=== PATIENT | male | born 1995 | race Caucasian/White ===

== ENCOUNTER 2018-09-05 15:29 | Observation (INO) | payer OTHER ==
[2018-09-05] VITALS (11 sets, daily range): BP systolic 126–146; BP diastolic 58–77; PULSE 70–96; RESP 12–23; Ht 188 cm; Wt 101.4 kg
[~2018-09-05] VITALS: Ht 188 cm; Wt 101.4 kg
[2018-09-05] MEDS ORDERED: ROPIVACAINE 0.5 % 30 ML VIAL ONE ×2 (17:02→17:15)
[2018-09-05] MEDS ORDERED: POLYMYXIN/BACITRACIN 1L IRRIG ONE (17:03)
[2018-09-05] MEDS ORDERED: POVIDONE IODINE 10% 28.4 GM OINT ONE (17:03)
[2018-09-05] MEDS ORDERED: MIDAZOLAM 1 MG/ML 2 ML INJ ONE (17:17)
--- NOTE | 2018-09-05 17:23 | PREAC ---
Date/Time of Note Date/Time of Note DATE: 09/05/18 TIME: 17:21 Anesthesia Eval and Record Evaluation Time Pre-Procedure Interview DATE: 09/05/18 TIME: 17:21 Age 23 Sex male NPO: 8 hrs Preoperative diagnosis right ankle fracture Planned procedure orif right ankle fracture, ankle arthroscopy, micro fracture and drilling talus, possible deltoid repair Past Medical History Past Medical History: None Surgery & Anesthesia Issues No known issue Meds Anticoagulation: No Beta Dara within 24 hr: No Reason Beta Dara not given: Pt. not on B-Dara Meds reviewed: Yes Allergies Coded Allergies: No Known Allergy (Unverified , 09/05/18) Allergies Reviewed: Yes Labs/Studies Labs Reviewed: Reviewed by anesthesiologist test: N/A Pre-procedure Exam Last vitals Vital Signs Date Temp Pulse Resp B/P (MAP) Pulse Ox O2 O2 Flow FiO2 Time Delivery Rate 09/05/18 98.9 90 16 126/75 97 Room Air 15:57 (92) Airway: Adequate mouth opening, Adequate thyromental dist Mallampati: Mallampati II Teeth: Normal Lung: Normal Heart: Normal ASA Physical Status ASA physical status: 1 Emergency: None Planned Anesthetic General/MAC: ETT Nerve block: Sciatic (right) Planned Pain Management Single shot nerve block, Parenteral pain med Pre-operative Attestations Prior to commencing anesthesia and surgery, the patient was re-evaluated, there was verification of: *The patient's identity *The results of appropriate recent lab work and preoperative vital signs *The above evaluation not changing prior to induction *Anesthetic plan, risk benefits, alternative and complications discussed with patient/family; questions answered; patient/family understands, accepts and wishes to proceed. ROE HERNANDEZ Sep 05, 2018 17:23
[2018-09-05] MEDS ORDERED: PROPOFOL 20 ML ONE (17:41)
[2018-09-05] MEDS ORDERED: DEXAMETHASONE 4 MG/ML 5 ML INJ ONE (18:37)
[2018-09-05] MEDS ORDERED: ONDANSETRON 4 MG INJ ONE (18:38)
[2018-09-05] MEDS ORDERED: FENTAnyl 50 MCG/ML VIAL ONE (20:43)
[2018-09-05] MEDS ORDERED: LABETALOL HCL 20MG INJ ONE (21:02)
[2018-09-05] MEDS ORDERED: CEFAZOLIN 1 GM INJ ONE (21:59)
[2018-09-05] MEDS ORDERED: GLYCOPYRROLATE 0.4 MG INJ ONE (21:59)
[2018-09-05] MEDS ORDERED: NEOSTIGMINE 3 MG/3 ML SYRINGE ONE (21:59)
[2018-09-05] MEDS ORDERED: KETOROLAC 30 MG INJ ONE (22:12)
--- NOTE | 2018-09-05 22:35 | PAC ---
Date/Time of Note Date/Time of Note DATE: 09/05/18 TIME: 22:35 Post-Anesthesia Notes Post-Anesthesia Note Last documented vital signs Vital Signs Date Temp Pulse Resp B/P (MAP) Pulse Ox O2 O2 Flow FiO2 Time Delivery Rate 09/05/18 98.9 90 16 126/75 97 Room Air 22:34 (92) Activity: WNL Respiratory function: WNL Cardiovascular function: WNL Mental status: Baseline Pain reasonably controlled: Yes Hydration appropriate: Yes Nausea/Vomiting absent: Yes ROE HERNANDEZ Sep 05, 2018 22:35
--- NOTE | 2018-09-05 22:35 | OPPN ---
Date/Time of Note Date/Time of Note DATE: 09/05/18 TIME: 22:32 Operative Report Preoperative Diagnosis Right bimalleolar ankle fracture and syndesmotic injury. Loose bodies left ankle. Postoperative Diagnosis same Operation/Procedure Performed 1. Right ankle arthroscopy with extensive debridement and removal of loose bodies 2. Open reduction internal fixation right bimalleolar ankle fracture 3. Open reduction internal fixation right ankle syndesmosis Surgeon see signature line carpenter assistant MD Juan Fisher MD Anesthesia: general Estimated blood loss: minimal Transfusion Required none Specimen none Grafts/Implants none Complications none JESUS OWUSU MD Sep 05, 2018 22:35
[2018-09-05] MEDS ORDERED: HYDROmorphONE 0.2 MG/ML PCA ONE (22:51)
[2018-09-05] MEDS ORDERED: ONDANSETRON 4 MG INJ IV PRN ×2 (23:00)
[2018-09-05] MEDS ORDERED: HYDROmorphONE 0.2 MG/ML PCA IV SCH (23:00)
[2018-09-05] MEDS ORDERED: EPHEDrine SULFATE 50 MG/5 ML SYG IV PRN (23:00)
[2018-09-05] MEDS ORDERED: DIPHENHYDRAMINE 25 MG CAP PO PRN (23:00)
[2018-09-05] MEDS ORDERED: morphine 10 MG INJ IV PRN (23:00)
[2018-09-05] MEDS ORDERED: KETOROLAC 30 MG INJ IV PRN (23:00)
[2018-09-05] MEDS ORDERED: LABETALOL HCL 20MG INJ IV PRN (23:00)
[2018-09-05] MEDS ORDERED: HYDROmorphONE 1 MG/5 ML IV SYRINGE IV PRN ×3 (23:00)
[2018-09-05] MEDS ORDERED: MEPERIDINE 25 MG INJ IV PRN (23:00)
[2018-09-05] MEDS ORDERED: DIPHENHYDRAMINE 50 MG INJ IV PRN (23:00)
[2018-09-05] MEDS ORDERED: CEFAZOLIN 1 GM/50 ML (PMX) 50 ML IVPB SCH (23:00)
[2018-09-05] MEDS ORDERED: METOCLOPRAMIDE 10 MG INJ IV PRN (23:00)
[2018-09-05] MEDS ORDERED: hydrALAzine 20 MG INJ IV PRN (23:00)
[2018-09-05] MEDS ORDERED: FENTAnyl 50 MCG/ML VIAL IV PRN ×3 (23:00)
[2018-09-05] MEDS ORDERED: ALBUTEROL 0.083% (NEB) 2.5 MG/3 ML AMP HHN PRN (23:00)
[2018-09-05] MEDS ORDERED: MIDAZOLAM 1 MG/ML 2 ML INJ IV PRN (23:00)
[2018-09-05] MEDS ORDERED: OXYCODONE/ACETAMINOPHEN (5/325) TAB PO PRN ×3 (23:00)
[2018-09-05] MEDS ORDERED: BISACODYL 10 MG SUPP PR PRN (23:00)
[2018-09-05] MEDS: SOD CHLORIDE 0.9% 1,000 ML IV SCH (23:56)
[2018-09-06 00:45] VITALS: BP 132/67; PULSE 95
--- NOTE | 2018-09-06 02:45 | OPR ---
DATE OF OPERATION: 09/05/2018 PREOPERATIVE DIAGNOSES: 1. Comminuted undisplaced bimalleolar fracture of the right ankle with a fracture of the posterior m alleolus and a comminuted fracture of the fibula and tear of the deltoid ligament. 2. Osteochondral fracture, posterolateral talus. 3. Fibrosis, scarring, and adhesions. POSTOPERATIVE DIAGNOSES: 1. Comminuted undisplaced bimalleolar fracture of the right ankle with a fracture of the posterior m alleolus and a comminuted fracture of the fibula and tear of the deltoid ligament. 2. Osteochondral fracture, posterolateral talus. 3. Fibrosis, scarring, and adhesions. OPERATIONS: 1. Arthroscopy, right ankle, with soft tissue distraction. 2. Extensive debridement of the ankle. 3. Removal of osteochondral loose bodies greater than 1 cm. 4. Open reduction internal fixation bimalleolar ankle fracture with a 10-hole one-third tubular plat e. 5. Reduction and stabilization of the syndesmosis with two 4.5 mm AO cannulated screws. 6. Use of fluoroscopy to verify the alignment of the fracture and position of the screws, K-wires, s yndesmosis screws, and plate. 7. Short-leg cast. 8. Stress x-rays under anesthesia of the ankle. Extremely complex difficult procedure because the fracture was 3 weeks old. It was quite scarred in. It was difficult to mobilize the fracture fragments, and there was a significant amount of comminut ion. In addition, the patient had a high BMI which made it more difficult as well. Because of this, an additional 60 minutes of time was spent doing the surgery (22). SURGEON: Jesus Crum MD AGRICULTURAL ENGINEER: Juan Crum MD SECOND PC INSTALLATION ENGINEER David Pryor MD ANESTHESIA: General with popliteal block. TOURNIQUET TIME: 120 minutes. DESCRIPTION OF PROCEDURE: The patient taken to the operating room and placed in supine position. Sa tisfactory popliteal block was given. Satisfactory general anesthesia was administered. The right t high was secured in the thigh subramanian. Arms were carefully padded. The right leg was prepped and jazmyn ped in the usual manner. Soft tissue distraction was applied to the ankle. Standard anteromedial, a nterolateral, and posterolateral portals were established using extreme caution avoiding neurovascula r structures. During the procedure, we also used a nonsterile thigh support under the drapes. There was extensive amount of hematoma and scarring throughout the ankle because the ankle fracture was 3 weeks old. Once inflow was established, I used the shaver from all 3 portals to remove all the hemat kelvin, scarring and fibrosis. There was an osteochondral fracture of the posterolateral talar dome wit h a loose fragment, which was removed greater than 1 cm. Several other osteochondral fracture fragme nts were seen posteriorly from the posterior malleolar fracture which were removed, each greater than 1 cm. The posterior malleolar fracture was debrided and left in place. The medial gutter was debri ded. There was a partial tear of the deltoid ligament, partial tears of the anterior talofibular lig ament, and complete tear of the syndesmosis as best we could tell. Syndesmosis was debrided. The la teral gutter and medial gutter were debrided. Soft tissue peeled off the distal tibia. All free bon e off the distal tibia was removed. Minimal chondromalacia was noted elsewhere in the tibia and the talus. Posterior ligaments had tears were debrided. After complete debridement, the ankle was then reprepped and redraped. All new gowns and gloves and instruments were used. The fluoroscope was bro ught in. We marked where the fracture site was and longitudinal incision was made above and below th e fracture at the tip of the fibula, carried up proximally to appropriate length. Dissection was car ried down to subcutaneous tissue. Extreme caution was made to avoid injuring neurovascular structure s. Periosteum was elevated off the fracture fragments. We left the butterfly fragment intact and in place, so we could reattach it later. Multiple comminuted fracture fragments were removed. The fra cture was exposed with sharp dissection and electrosurgery. Entire fracture was then irrigated and a ll the hematoma was removed. Curettes were used to remove all of the fracture debris and hematoma un til we can understand the fracture more clearly. Because of the fracture was 3 weeks old, mobilizati on was difficult of the fracture and freeing up the fracture and reducing was very difficult. We red uced the first dorsal distal piece to the remaining fibula with the clamps. Two 3.5 interfragmentary screws were used to hold it in place. We then reduced the second dorsal portion of the fracture to the posterior portion and secured with 1 interfragmentary screw. The butterfly triangular fragment w as then reduced, held temporarily with a K-wire. A 10-hole one-third tubular plate was then bent at the tip and aligned, so it fit perfectly along the fracture. By doing this, we were able to buttress and reduce anatomically the large butterfly fragment. Two cancellous screws were inserted distally. Three bicortical screws were inserted proximally with a total of 6 screws in the plate and 3 interf ragmentary screws. Under fluoroscopy, we did stress x-rays of the ankle. The syndesmosis was unstab le and the medial clear space went from 2 mm to 6 mm. We felt syndesmosis screws were indicated. Th e ankle was dorsiflexed. A small nabil was made in the medial malleolus. The large reduction clamp w as placed in the plate and on the medial malleolus, the mortise was reduced and the syndesmosis was r educed anatomically. Two 4.0 guide pins were inserted from the AO cannulated screw set. The lengths were measured. The holes were drilled for cortices, and two 4.5 cannulated screws were inserted for cortices. Excellent fixation was obtained. Also, these screws helped up to reduce the fibular obli que fracture anatomically further. When we were done with the syndesmosis, stress x-rays were done a nd the syndesmosis was quite stable. Medial clear space was 2 mm. Final fluoroscopic views in all 3 planes, AP, lateral, and mortise, show anatomic reduction with excellent placement of the screws and plate. The wounds irrigated again with antibiotic solution. The fascia was closed over the plate a nd the screws with a running 0 PDS. Tourniquet was released, bleeders were coagulated, wounds irriga woody with antibiotic solution, and bleeding was obtained. The subcutaneous tissue was closed with 2-0 and 3-0 undyed Vicryl, and the skin was closed with 3-0 and 4-0 black nylon. Portals were closed wi th 3-0 black nylon. A saphenous nerve block done with 0.5% ropivacaine. Compression dressing was ap plied as well as a short-leg cast in neutral position. Interprocedure sponge and needle count was co rrect. The patient tolerated procedure well and the cast was split in the operating room. PC INSTALLATION ENGINEER ORTHOPEDIC SURGEON: During the procedure, an pediatric medical assistant orthopedic surgeon was used at my [facility]. The pediatric medical assistant helped with manipulating the ankle, reducing the fracture and while I held the fracture reduced, the pediatric medical assistant inserted the screws to hold the fractures in place. Without a skill ed orthopedic surgeon assisting me, this could not have been done and should be compensated appropria tely. Dictated By: JESUS JC/EDITA Conf#: [id number] DID#: [id number]
[2018-09-06] MEDS: CEFAZOLIN 1 GM/50 ML (PMX) 50 ML IVPB SCH ×2 (05:49→13:05)
[2018-09-06 08:28] VITALS: BP 113/55; PULSE 101; RESP 19
[2018-09-06] MEDS: SOD CHLORIDE 0.9% 1,000 ML IV SCH (08:35)
[2018-09-06] MEDS ORDERED: SENNA/DOCUSATE NA (8.6MG/50MG) TAB PO SCH (09:00)
[2018-09-07] MEDS ORDERED: MAGNESIUM HYDROXIDE 30ML CUP PO SCH (21:00)
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
== END 2018-09-06 16:20 | disposition home or self-care (01) ==
LOC: SDS 15:29 → REC 22:44 → SDS 22:44 → MS1 23:40
PROVIDERS: ADMIT Orthopaedic Surgery; ATTEND Orthopaedic Surgery
DX: S82.844D Nondisplaced bimalleolar fracture of right lower leg, subsequent encounter for closed fracture with routine healing (principal); X58.XXXD Exposure to other specified factors, subsequent encounter; M93.271 Osteochondritis dissecans, right ankle and joints of right foot
CPT/HCPCS: 29892; 29898; 73610; 97116; 97161; C1713; G0378; J0690; J1100; J1170; J1885; J2250; J2270; J2405; J2710; J2765; J2795; J3010; J7030

== ENCOUNTER 2018-09-11 08:57 | Emergency (ER) | payer OTHER ==
[~2018-09-11] VITALS: Ht 188 cm; Wt 96.4 kg
[2018-09-11 09:07] VITALS: Ht 188 cm; Wt 96.4 kg
[2018-09-11] MEDS ORDERED: RIVA10TA PO (09:33)
[2018-09-11] MEDS ORDERED: SOD CHLORIDE 0.9% 100 ML ONE (09:46)
[2018-09-11] MEDS ORDERED: IOHEXOL 100 ML ONE (09:46)
--- NOTE | 2018-09-11 10:59 | ERD ---
ER Documentation Chief Complaint Chief Complaint pressure like cp; left leg pain, had tibial surgery on august HPI 23-year-old male presents to the emergency department complaining of a right- sided leg pain. Patient is status post surgery for a traumatic injury to his lower extremity. Over the last 24 hours, he developed a nonspecific discomfort in the area of the foot. He had a concurrent nonspecific chest discomfort associated with no hemoptysis or shortness of breath, palpitations or sputum production. He reported this pain is mild to moderate. After speaking with his doctor and looking things up in the Internet, he became concerned that he might have a blood clot. He called the paramedics who evaluated the patient, but did not feel that he required transport. He then arrived by private vehicle to the em ergency department for evaluation. upon arrival, he reports no significant shortness of breath or any other high-risk complaints at this time. ROS All systems reviewed and are negative except as per history of present illness. Medications Home Meds Reported Medications Rivaroxaban* (Xarelto*) 10 Mg Tablet, 10 MG PO QHS, TAB 09/11/18 Allergies Allergies: Coded Allergies: No Known Allergy (Unverified , 09/11/18) PMhx/Soc History of Surgery: Yes (right lower leg 08/2018) Anesthesia Reaction: No Hx Neurological Disorder: No Hx Respiratory Disorders: No Hx Cardiac Disorders: No Hx Psychiatric Problems: No Hx Miscellaneous Medical Probl: Yes (RT BIMALLEOLAR ANKLE FRACTURE AND SYNDESMOTIC INJURY.) Hx Alcohol Use: Yes (social) Hx Substance Use: Yes (social, MARIJUANA 2 WEEK AGO) Hx Tobacco Use: Yes (RARELY) Smoking Status: Light tobacco smoker FmHx Noncontributory for chief complaint Physical Exam Vitals Vital Signs Date Temp Pulse Resp B/P (MAP) Pulse Ox O2 O2 Flow FiO2 Time Delivery Rate 09/11/18 97.3 95 18 142/99 99 09:07 (113) Physical Exam GENERAL: The patient is well developed and appropriate for usual state of health in no apparent distress HEENT: Pupils equal, round, and reactive to light. EOMI. There is no scleral icterus. NECK: C-spine is soft and supple, there is no meningismus. There is no cervical lymphadenopathy. LUNGS: Clear to auscultation bilaterally. There are no rales, wheezes or rhonchi. HEART: Regular rate and rhythm, no murmurs, clicks, rubs or gallops. ABDOMEN: Soft, non-tender, non-distended. There are bowel sounds in all four quadrants. No rebound or guarding. EXTREMITIES: There is no peripheral cyanosis or edema. No focal swelling or erythema. No calf tenderness is noted. Patient has a short leg fiberglass cast in place. NEURO: The patient moves all four extremities with 5/5 strength. Cranial nerves II - XII are intact. Normal gait. Alert and oriented SKIN: There is no apparent rash or petechiae. HEME/LYMPHATIC: There is no evidence of excessive bruising or lymphedema. PSYCHIATRIC: The patient does not appear anxious or depressed. Result Diagram: 09/11/1892509/11/18925 Results 24 hrs Laboratory Tests Test 09/11/18 09:26 White Blood Count 9.6 10^3/ul Red Blood Count 4.63 10^6/ul Hemoglobin 13.8 g/dl Hematocrit 40.8 % Mean Corpuscular Volume 88.1 fl Mean Corpuscular Hemoglobin 29.8 pg Mean Corpuscular Hemoglobin Concent 33.8 g/dl Red Cell Distribution Width 11.7 % Platelet Count 323 10^3/UL Mean Platelet Volume 9.4 fl Immature Granulocytes % 0.500 % Neutrophils % 66.2 % Lymphocytes % 23.5 % Monocytes % 7.2 % Eosinophils % 2.0 % Basophils % 0.6 % Nucleated Red Blood Cells % 0.0 /100WBC Immature Granulocytes # 0.050 10^3/ul Neutrophils # 6.4 10^3/ul Lymphocytes # 2.3 10^3/ul Monocytes # 0.7 10^3/ul Eosinophils # 0.2 10^3/ul Basophils # 0.1 10^3/ul Nucleated Red Blood Cells # 0.0 10^3/ul Sodium Level 139 mmol/L Potassium Level 4.1 mmol/L Chloride Level 101 mmol/L Carbon Dioxide Level 25 mmol/L Anion Gap 13 Blood Urea Nitrogen 18 mg/dl Creatinine 0.68 mg/dl Est Glomerular Filtrat Rate mL/min > 60 mL/min Glucose Level 101 mg/dl Calcium Level 10.2 mg/dl Troponin I < 0.012 ng/ml Current Medications Medications Dose Sig/Darin Start Time Status Last (Trade) Ordered Route PRN Stop Time Admin Dose Reason Admin IV Flush 10 ml STK-MED 09/11/18 DC 09/11/18 (NS 10 ml) ONCE .ROUTE 09:46 10:31 09/11/18 09:47 Sodium 100 ml @ ud STK-MED 09/11/18 DC 09/11/18 Chloride ONCE .ROUTE 09:46 10:31 09/11/18 09:47 Iohexol 100 ml @ ud STK-MED 09/11/18 DC 09/11/18 ONCE .ROUTE 09:46 10:32 09/11/18 09:47 Procedures/MDM Patient was taken to a room, seen and evaluated. Comfort measures were initiated. Diagnostic tests were ordered and reviewed. 3 LEAD RHYTHM STRIP: Normal sinus rhythm without ectopy EK lead EKG reviewed by myself: Normal Sinus Rhythm Normal Kennard and intervals No ST elevation, depression, or T wave inversion Impression: Normal EKG RADIOLOGY: Reviewed with the radiologist REEVALUATION: 1100: Patient has remained hemodynamic with stable and comfortable in the emergency department. Diagnostic tests were appreciated and discussed with the patient and his family MEDICAL DECISION MAKIN-year-old patient presents postoperatively with a nonspecific chest pain and concerns that he might have a blood clot/DVT. At this time, his workup demonstrates no significant evidence of DVT or pulmonary embolism. He has no evidence of infection or other high-risk concerns and seems appropriate for outpatient care after reassurance. Departure Diagnosis: Primary Impression: Knowledge deficit on cast home care Condition: Stable Patient Instructions: Cast Care, Fiberglass Additional Instructions: Please see your orthopedist this week for a recheck. Return for any problems or concerns YOUSIF APARICIO Sep 11, 2018 10:59
[2018-09-11 11:11] VITALS: BP 124/84; PULSE 88; RESP 16
== END 2018-09-11 13:41 | disposition home or self-care (01) ==
LOC: E/R 08:57
DX: R07.9 Chest pain, unspecified (principal); F17.210 Nicotine dependence, cigarettes, uncomplicated
CPT/HCPCS: 36415; 71045; 71275; 80048; 84484; 85025; 93005; 93971; 99285; Q9967